=== PATIENT | male | born 2000 | race African-American/Black ===

== ENCOUNTER 2019-07-06 08:42 | Emergency (ER) | payer OTHER ==
[~2019-07-06] VITALS: Ht 182.9 cm; Wt 95.3 kg
[2019-07-06] MEDS ORDERED: IV NORMAL SALINE 1,000ML 1,000 ML IV ONE ×2 (09:00→10:45)
--- NOTE | 2019-07-06 09:00 | EKG ---
[address] [address] Test Date: 2019-07-06 Test Time: 08:47:01 Pat Name: CODY NORIEGA Department: Room: Gender: M Sub Acute Care Nurse: : 2000 Requested By: MARCIA ROYAL Order Number: [id number] Reading MD: Miguel Angel Moore MD Measurements Intervals [place] Rate: 93 P: 47 IL: 168 QRS: 51 QRSD: 84 T: 23 QT: 336 QTc: 420 Interpretive Statements SINUS RHYTHM Electronically Signed On 07-12-2019 11:37:57 CDT by Miguel Angel Moore MD
[2019-07-06] MEDS ORDERED: ORPHENADRINE CITRATE 60 MG/2 ML VIAL. IV ONE (09:15)
[2019-07-06] MEDS ORDERED: DEXAMETHASONE SOD PHOS 4 MG/ML VIAL IVP ONE (09:15)
[2019-07-06] MEDS ORDERED: KETOROLAC 15 MG/ML VIAL. IV ONE (09:15)
--- NOTE | 2019-07-06 09:21 | PHYS DOC ---
Past History Past Medical History: Depression Additional Past Medical Histor: Neurofibromatosis Past Surgical History: No Surgical History Smoking: Less than 1pk/day (socially) Alcohol Use: None Drug Use: None Adult General Chief Complaint Chief Complaint: SEIZURE HPI HPI 18-year-old male presents via EMS with report of seizure-like activity this morning. Patient reports had started feeling ill last night with associated headache and sore throat. Patient also complains of body aches and neck pain. Reports last took some Tylenol last night for his symptoms. Reports went to [facility] for evaluation this AM and that is when patient had presenting episode. Denies history of prior seizures. Denies known sick contacts. Denies trauma. Denies dysuria. Denies cough. Reports nasal congestion. Review of Systems Review of Systems Constitutional: Reports chills and body aches; denies fever Eyes: Denies redness or eye pain HENT: Reports nasal congestion and sore throat Respiratory: Denies cough or shortness of breath Cardiovascular: Denies chest pain or palpitations GI: Denies abdominal pain, nausea, or vomiting : Denies dysuria or hematuria Musculoskeletal: Denies joint pain; reports body aches and neck pain Integument: Denies rash or skin lesions Neurologic: Reports headache and seizure like activity; denies focal weakness or sensory changes Complete systems were reviewed and found to be within normal limits, except as documented in this note. Current Medications Current Medications Current Medications Medications (Trade) Dose Ordered Sig/Diaz Start Time Stop Time Status Last Admin Dose Admin Dexamethasone Sodium Phosphate (Decadron) 10 mg 1X ONCE 07/06/19 09:15 07/06/19 09:16 DC Ketorolac Tromethamine (Toradol 15mg Vial) 15 mg 1X ONCE 07/06/19 09:15 07/06/19 09:16 DC Orphenadrine Citrate (Norflex) 60 mg 1X ONCE 07/06/19 09:15 07/06/19 09:16 DC Sodium Chloride 1,000 ml @ 1,000 mls/hr 1X ONCE 07/06/19 09:00 07/06/19 09:59 Allergies Allergies Allergies Coded Allergies Type Severity Reaction Last Updated Verified No Known Drug Allergies 07/06/19 No Physical Exam Physical Exam Constitutional: Well developed, well nourished, no acute distress, non-toxic appearance, anxious HENT: Normocephalic, atraumatic, oropharynx moist, tonsils erythematous with some small ulcerations noted, TMS erythematous, nasal turbinates enlarged and irritated bilaterally Eyes: PERRL, EOMI, conjunctiva normal, no discharge Neck: Normal range of motion, bilateral paraspinal tenderness, supple, Kernig and Brudzinski negative Cardiovascular: Heart rate normal, regular rhythm Lungs & Thorax: Bilateral breath sounds clear to auscultation, no wheezing Abdomen: Soft, no tenderness Skin: Warm, dry, no erythema, no rash Extremities: No tenderness, ROM intact, no edema Neurologic: Alert and oriented X 3, normal motor function, normal sensory function, no focal deficits noted Psychologic: Affect anxious, judgement normal EKG EKG @0847 NSR at 93bpm, NO ST elevation, QRS 84ms, QT/QTc 336/420ms Radiology/Procedures Radiology/Procedures PROCEDURE: CT HEAD WO CONTRAST EXAM: Head CT without contrast. HISTORY: Seizure like activity. Headache. TECHNIQUE: Computed tomographic images of the head were obtained without contrast. *One or more of the following individualized dose reduction techniques were utilized for this examination: 1. Automated exposure control. 2. Adjustment of the mA and/or kV according to patient size. 3. Use of iterative reconstruction technique. COMPARISON: None. FINDINGS: There is no acute or subacute extra-axial or intraparenchymal hemorrhage. There is no mass effect or midline shift. There is no hydrocephalus. The salter-white matter differentiation pattern is intact. The visualized portions the orbits and mastoid air cells are unremarkable. There is a mucous retention cyst containing gas or dense frothy fluid within the left aspect of the sphenoid sinus. IMPRESSION: No acute intracranial findings. Electronically signed by: Fiona Chen MD (07/06/2019 10:00 AM) [place] [id number] Course & Med Decision Making Course & Med Decision Making Pertinent Labs and Imaging studies reviewed. (See chart for details) Patient presents with history of present illness and physical exam concerning for viral illness. Patient is afebrile. Negative Kernig and Brudzinski signs. Patient does have some neck tenderness and headache with report of seizure-like activity. Patient also noted to have tonsillar erythema. Rapid strep negative. Labs obtained and posted to chart. Monospot negative. Influenza also negative. Creat elevated. CPK also slightly elevated. IVF boluses x [address] head without acute process. EKG stable. Patient with interval improvement of symptoms. Discussed cannot fully exclude meningitis. Discussed lumbar puncture risk vs benefit. Shared decision making with patient regarding. Decision to hold lumbar puncture at this time. Patient stable for discharge with outpatient follow-up with PCP. Discussed findings and plan with patient and family, who acknowledge understanding and agreement. Doni Disclaimer Dragon Disclaimer This electronic medical record was generated, in whole or in part, using a voice recognition dictation system. Departure Departure: Impression: Primary Impression: Seizure-like activity Additional Impressions: Viral syndrome Hypomagnesemia Elevated CK Renal insufficiency Disposition: HOME, SELF-CARE Condition: IMPROVED Referrals: PCP,JUWAN (PCP) Patient Instructions: Hypomagnesemia, Seizure, Adult, [id number], Viral Syndrome Additional Instructions: Your Creatinine (1.5) was elevated today. Please have your doctor recheck your kidney function. Scripts Prednisone (PREDNISONE) 20 Mg Tablet 2 TAB PO DAILY for Viral Syndrome, #8 TAB Start this medication tomorrow, 07/07/19 Prov: MARCIA ROYAL DO 07/06/19 Butalb/Acetaminophen/Caffeine (RUYKEH-INANQEGE-UTJN 50-325-40) 1 Each Tablet 1 EACH PO Q6HRS PRN for HEADACHE, #14 TAB Prov: MARCIA ROYAL DO 07/06/19 Orphenadrine Citrate (ORPHENADRINE CITRATE) 100 Mg Tablet.er 1 TAB PO BID PRN for MUSCLE PAIN, #20 TAB Prov: MARCIA ROYAL DO 07/06/19 Problem Qualifiers MARCIA ROYAL DO Jul 06, 2019 09:21
[2019-07-06 09:23] LABS: BASO # 0.1 x10^3/uL (0.0-0.2); BASO % 1 % (0-3); EOS # 0.1 x10^3/uL (0.0-0.7); EOS % 1 % (0-3); HEMATOCRIT 43.6 % (39.0-53.0); HEMOGLOBIN 14.3 g/dL (13.0-17.5); LYMPH # 1.1 x10^3/uL (1.0-4.8); LYMPH % 10 % (24-48); MEAN CORPUSCULAR HEMOGLOBIN 27 pg (25-35); MEAN CORPUSCULAR HGB CONC 33 g/dL (31-37); MEAN CORPUSCULAR VOLUME 83 fL (79-100); MONO # 1.3 x10^3/uL (0.0-1.1); MONO % 11 % (0-9); NEUT # 8.8 x10^3uL (1.8-7.7); NEUT % 77 % (31-73); PLATELET COUNT 224 x10^3/uL (140-400); RED BLOOD COUNT 5.24 x10^6/uL (4.30-5.70); RED CELL DISTRIBUTION WIDTH 13.6 % (11.5-14.5); WHITE BLOOD COUNT 11.4 x10^3/uL (4.0-11.0)
[2019-07-06 09:34] LABS: ALBUMIN/GLOBULIN RATIO 0.9 (1.0-1.7); CALCIUM 9.5 mg/dL (8.5-10.1); CREATININE 1.5 mg/dL (0.7-1.3); GFR 60.3; MAGNESIUM 1.7 mg/dL (1.8-2.4); TOTAL BILIRUBIN 0.4 mg/dL (0.2-1.0); TOTAL PROTEIN 8.5 g/dL (6.4-8.2)
[2019-07-06 09:36] LABS: MONONUCLEOSIS PATIENT NEGATIVE (NEGATIVE)
[2019-07-06 09:42] LABS: INFLUENZA A PATIENT NEGATIVE (NEGATIVE); INFLUENZA B PATIENT NEGATIVE (NEGATIVE)
--- NOTE | 2019-07-06 10:03 | RAD ---
EXAM: Head CT without contrast. HISTORY: Seizure like activity. Headache. TECHNIQUE: Computed tomographic images of the head were obtained without contrast. *One or more of the following individualized dose reduction techniques were utilized for this examination: 1. Automated exposure control. 2. Adjustment of the mA and/or kV according to patient size. 3. Use of iterative reconstruction technique. COMPARISON: None. FINDINGS: There is no acute or subacute extra-axial or intraparenchymal hemorrhage. There is no mass effect or midline shift. There is no hydrocephalus. The salter-white matter differentiation pattern is intact. The visualized portions the orbits and mastoid air cells are unremarkable. There is a mucous retention cyst containing gas or dense frothy fluid within the left aspect of the sphenoid sinus. IMPRESSION: No acute intracranial findings. Electronically signed by: Fiona Chen MD (07/06/2019 10:00 AM) [place] [id number]
[2019-07-06 10:25] LABS: AMPHETAMINE/METHAMPHETAMINE NEG (NEG); BARBITURATES NEG (NEG); BENZODIAZEPINES NEG (NEG); CANNABINOIDS NEG (NEG); COCAINE NEG (NEG); METHADONE NEG (NEG); OPIATES NEG (NEG); PHENCYCLIDINE NEG (NEG)
[2019-07-06 10:35] LABS: BILIRUBIN,URINE NEG (NEG); CLARITY,URINE CLEAR; COLOR,URINE YELLOW; GLUCOSE,URINE NEG (NEG); NITRITE,URINE NEG (NEG); UROBILINOGEN,URINE 0.2 mg/dL (0.2 mg/dL)
[2019-07-06 10:36] LABS: BACTERIA,URINE 0 /HPF (0-FEW); WBC,URINE RARE /HPF (0-4)
[2019-07-06] MEDS ORDERED: MAGNESIUM CHLORIDE ER 64 MG TABLET.ER PO ONE (10:45)
[2019-07-06] MEDS ORDERED: ORPH-16 PO (10:53)
[2019-07-06] MEDS ORDERED: BUTA1TAB23 PO (10:53)
[2019-07-06] MEDS ORDERED: PRED20TA PO (11:11)
[2019-07-06 11:30] VITALS: BP 124/65
== END 2019-07-06 11:30 | disposition home or self-care (01) ==
LOC: ER 08:42
DX: R56.9 Unspecified convulsions (principal); B34.9 Viral infection, unspecified; E83.42 Hypomagnesemia; N28.9 Disorder of kidney and ureter, unspecified; R74.8 Abnormal levels of other serum enzymes; F32.9 Major depressive disorder, single episode, unspecified; F17.200 Nicotine dependence, unspecified, uncomplicated
CPT/HCPCS: 36415; 70450; 80053; 80307; 81001; 82550; 83605; 83735; 85025; 86308; 87070; 87804; 87880; 93005; 96374; 96375; 99285; G0480; J1100; J1885; J2360; J7030

== ENCOUNTER 2019-10-08 06:20 | Emergency (ER) | payer OTHER ==
[~2019-10-08] VITALS: Ht 180.3 cm; Wt 99.8 kg
[~2019-10-08 06:20] MED LIST: BUTA1TAB23 PO; ORPH-16 PO; PRED20TA PO
[2019-10-08 06:39] VITALS: BP 131/84
[2019-10-08] MEDS ORDERED: NAPROXEN 500 MG TABLET ONE (07:21)
--- NOTE | 2019-10-08 07:21 | PHYS DOC ---
Past History Past Medical History: Depression Additional Past Medical Histor: Neurofibromatosis Past Surgical History: Tonsillectomy Smoking: Less than 1pk/day Alcohol Use: Occasionally Drug Use: None Adult General Chief Complaint Chief Complaint: WRIST PAIN HPI HPI 19-year-old male presents with left wrist pain. The patient was at work when he went outside for a break. He slipped on the ice and fell onto his hyperflexed left wrist. He currently has pain at the base of the thumb lateral wrist. He is concern for fracture. He denies any numbness, tingling, altered sensation. There is minimal swelling at this time. He denies any other injuries or complaints. Review of Systems Review of Systems Constitutional: Denies fever or chills [] Eyes: Denies change in visual acuity, redness, or eye pain [] HENT: Denies nasal congestion or sore throat [] Respiratory: Denies cough or shortness of breath [] Cardiovascular: No additional information not addressed in HPI [] GI: Denies abdominal pain, nausea, vomiting, bloody stools or diarrhea [] : Denies dysuria or hematuria [] Musculoskeletal: Left wrist pain[] Integument: Denies rash or skin lesions [] Neurologic: Denies headache, focal weakness or sensory changes [] Endocrine: Denies polyuria or polydipsia [] All other systems were reviewed and found to be within normal limits, except as documented in this note. Allergies Allergies Allergies Coded Allergies Type Severity Reaction Last Updated Verified No Known Drug Allergies 07/06/19 No Physical Exam Physical Exam Constitutional: Well developed, well nourished, no acute distress, non-toxic appearance. [] HENT: Normocephalic, atraumatic, bilateral external ears normal, oropharynx moist, no oral exudates, nose normal. [] Eyes: PERRLA, EOMI, conjunctiva normal, no discharge. [] Neck: Normal range of motion, no tenderness, supple, no stridor. [] Cardiovascular:Heart rate regular rhythm, no murmur [] Lungs & Thorax: Bilateral breath sounds clear to auscultation [] Abdomen: Bowel sounds normal, soft, no tenderness, no masses, no pulsatile masses. [] Skin: Warm, dry, no erythema, no rash. [] Back: No tenderness, no CVA tenderness. [] Extremities: Tenderness over the anatomic snuffbox of the left hand. No swelling or obvious deformity.[] Neurologic: Alert and oriented X 3, normal motor function, normal sensory function, no focal deficits noted. [] Psychologic: Affect normal, judgement normal, mood normal. [] Current Patient Data Vital Signs Vital Signs Date Time Temp Pulse Resp B/P (MAP) Pulse Ox O2 Delivery O2 Flow Rate FiO2 10/08/19 06:39 97.9 57 16 100 Room Air EKG EKG [] Radiology/Procedures Radiology/Procedures [] Course & Med Decision Making Course & Med Decision Making Pertinent Labs and Imaging studies reviewed. (See chart for details) The patient appears to have a strain of the ulnar collateral ligament and or a strain of the extensor pollicis ligaments. Place him in a thumb spica Velcro splint. I have advised that he take ibuprofen 3 times a day for pain and swelling. If this does not improve within a week, he will follow up with orthopedics. He is stable for discharge at this time. [] Dragon Disclaimer Dragon Disclaimer This electronic medical record was generated, in whole or in part, using a voice recognition dictation system. Departure Departure: Impression: Primary Impression: Left thumb sprain Disposition: HOME, SELF-CARE Condition: STABLE Referrals: MARU GALINDO MD (PCP) Patient Instructions: Thumb Sprain Problem Qualifiers Primary Impression: Left thumb sprain Encounter type: initial encounter Sprain of finger site: metacarpophalangeal joint Qualified Codes: S63.642A - Sprain of metacarpophalangeal joint of left thumb, initial encounter JAYCOB MORRISON DO Oct 08, 2019 07:21
--- NOTE | 2019-10-08 07:29 | RAD ---
Exam performed: Left hand and wrist 3 views. Indication: Left hand injury Date of Service: 10/08/2019 Comparison: None available Findings: AP, lateral and oblique views of the left wrist and hand are obtained. Normal alignment of the wrist joint is preserved. There is normal alignment of the hand. Questionable cortical buckling with mild overlying soft tissue swelling seen in the distal radius only on a single oblique projection of the hand and not seen on any other view may be positional There is no acute fracture or dislocation. No soft tissue foreign body seen. Impression: 1. Mild soft tissue swelling in the left wrist with questionable cortical buckling of the distal radius seen only on one projection. This is perhaps positional, however correlate clinically to rule out possibility of a nondisplaced fracture. Electronically signed by: Nuzhat Wood MD (10/08/2019 7:26 AM) [facility]
[2019-10-08] MEDS ORDERED: NAPROXEN 500 MG TABLET PO ONE (07:30)
== END 2019-10-08 07:33 | disposition home or self-care (01) ==
LOC: ER 06:20
DX: S63.642A Sprain of metacarpophalangeal joint of left thumb, initial encounter (principal); F17.200 Nicotine dependence, unspecified, uncomplicated; W00.0XXA Fall on same level due to ice and snow, initial encounter; Y93.89 Activity, other specified; Y92.89 Other specified places as the place of occurrence of the external cause; Y99.0 Civilian activity done for income or pay
CPT/HCPCS: 29125; 73110; 73130; 99284

== ENCOUNTER → 2019-11-15 | Outpatient (CLI) | payer OTHER ==
[2019-11-17 01:06] LABS: RUBELLA IGG ANTIBODY 5.68 index (Immune >0.99)
== END | disposition home or self-care (01) ==
LOC: PMG 10:44
PROVIDERS: ATTEND Family Medicine
DX: Z01.84 Encounter for antibody response examination (principal)
CPT/HCPCS: 36415; 86706; 86735; 86762; 86765; 86787